=== PATIENT | female | born 1990 | race African-American/Black ===

== ENCOUNTER 2021-02-05 14:03 | Emergency (ER) | payer OTHER ==
[~2021-02-05 14:03] MED LIST: AMOXICILLIN875 MG PO; BROMFED DM COU473 ML PO; NAPROXEN500 MG PO; VOLTAREN **OUT50 MG PO
[2021-02-05 17:19] LABS: BASOPHIL 0.4 % (0-2); EOSINOPHIL 1.3 % (0-5); HCT 37.9 % (37.0-47.0); HGB 11.5 g/dl (12.5-16.0); LYMPHOCYTE 30.3 % (15-48); MCH 24.4 pg (25.0-31.0); MCHC 30.3 g/dL (32.0-36.0); MCV 80.5 fL (78.0-100.0); MPV 10.7 fL (6.0-9.5); NEUTROPHIL 62.8 % (41-80); NRBC 0; PLT 230 K/uL (150-400); RBC 4.71 M/uL (4.20-5.40); RDW 15.6 % (11.5-14.0); WBC 4.8 K/uL (4.0-10.5)
[2021-02-05 17:39] LABS: ALBUMIN 3.4 g/dL (3.4-5.0); BILIRUBIN - TOTAL 0.2 mg/dL (0.2-1.0); BUN/CREAT RATIO (CALC) 10.2 RATIO; CREATININE 0.88 mg/dL (0.51-0.95); GLOBULIN (CALCULATION) 4.4 g/dL; POTASSIUM 3.6 mmol/L (3.5-5.1); TOTAL PROTEIN 7.8 g/dL (6.4-8.2)
[2021-02-05 18:04] LABS: BILIRUBIN NEGATIVE (NEGATIVE); BLOOD 2+ Ery/uL (NEGATIVE); COLOR YELLOW (YELLOW); GLUCOSE (U) NORMAL (NORMAL); LEUKOCYTES NEGATIVE Leu/uL (NEGATIVE); NITRITE NEGATIVE (NEGATIVE); PROTEIN TRACE (LOW) mg/dL (NEGATIVE); SPECIFIC GRAVITY 1.025 (1.001-1.030); UROBILINOGEN 0.2 mg/dL (0.2-1.0); pH 6.5 (5.0-9.0)
[2021-02-05 18:20] LABS: CLARITY SLIGHTLY HAZY (CLEAR)
[2021-02-05 18:21] LABS: BACTERIA TRACE; CALCIUM OXALATE CRYSTALS TRACE; MUCOUS TRACE; URINARY WBC RARE
== END 2021-02-05 19:20 | disposition home or self-care (01) ==
LOC: FER 14:03
PROVIDERS: Emergency Medicine
DX: O16.5 Unspecified maternal hypertension, complicating the puerperium (principal)
CPT/HCPCS: 36415; 80053; 81001; 83615; 85025; 99283

== ENCOUNTER 2021-02-23 20:15 | Emergency (ER) | payer OTHER ==
[2021-02-23 22:16] LABS: BASOPHIL 0 % (0-2); EOSINOPHIL 0 % (0-5); HCT 43.9 % (37.0-47.0); HGB 13.1 g/dl (12.5-16.0); MCH 23.8 pg (25.0-31.0); MCHC 29.8 g/dL (32.0-36.0); MCV 79.7 fL (78.0-100.0); MONOCYTE 2.8 % (0-12); MPV 11.2 fL (6.0-9.5); NEUTROPHIL 77.3 % (41-80); NRBC 0; PLT 244 K/uL (150-400); RBC 5.51 M/uL (4.20-5.40); RDW 15.6 % (11.5-14.0); WBC 3.9 K/uL (4.0-10.5)
[2021-02-23 22:17] LABS: LYMPHOCYTE 19.6 % (15-48)
[2021-02-23 22:40] LABS: ALBUMIN 3.2 g/dL (3.4-5.0); BILIRUBIN - TOTAL 0.3 mg/dL (0.2-1.0); BUN/CREAT RATIO (CALC) 9.5 RATIO; CREATININE 0.95 mg/dL (0.51-0.95); GLOBULIN (CALCULATION) 5.1 g/dL; POTASSIUM 3.6 mmol/L (3.5-5.1); TOTAL PROTEIN 8.3 g/dL (6.4-8.2)
[2021-02-23 23:48] LABS: BILIRUBIN 1+ mg/dL (NEGATIVE); BLOOD TRACE-INTACT Ery/uL (NEGATIVE); CLARITY CLEAR (CLEAR); COLOR YELLOW (YELLOW); GLUCOSE (U) NORMAL (NORMAL); LEUKOCYTES TRACE Leu/uL (NEGATIVE); NITRITE NEGATIVE (NEGATIVE); PROTEIN 2+ mg/dL (NEGATIVE)
[2021-02-24 00:19] LABS: AMORPHOUS URATES CRYSTALS MODERATE; BACTERIA TRACE
== END 2021-02-24 00:56 | disposition other institution (70) ==
LOC: FER 20:15
PROVIDERS: Emergency Medicine
DX: U07.1 COVID-19 (principal); I10 Essential (primary) hypertension; I71.01 Dissection of thoracic aorta
CPT/HCPCS: 36415; 71045; 71275; 80053; 81001; 84484; 85025; 85379; 93005; J2405; J3490; J7030; Q9967